=== PATIENT | male | born 1990 | race Caucasian/White ===

== ENCOUNTER 2020-03-04 17:31 | Emergency (ER) | payer BC ==
[~2020-03-04] VITALS: Ht 177.8 cm; Wt 96.6 kg
[2020-03-04] MEDS ORDERED: LIDOCAINE 1% MDV 20ML VIAL As Ordered ONE (18:35)
[2020-03-04] MEDS ORDERED: LIDOCAINE 1% MDV 20ML VIAL SC ONE (18:45)
--- NOTE | 2020-03-04 18:54 | REPVR ---
PROCEDURE INFORMATION: Exam: US Pelvis Limited, Male Exam date and time: 03/04/2020 6:37 PM Age: 30 years old Clinical indication: Mass, lump, or swelling; Other: Lower back just above buttocks; Additional info: Complex pilonidal cyst/abcess TECHNIQUE: Imaging protocol: Real-time pelvic ultrasound with image documentation. COMPARISON: No relevant prior studies available. FINDINGS: Free fluid: Debris is are seen in the fluid collection. Vasculature: There is increased vascular flow in the periphery of the fluid collection. Other findings: Complex collection in the lower midline with tract to skin. It measures approximately 7.2 x 1.7 cmx2.9cm(APXTxCC). IMPRESSION: Abscess in the lower midline back subcutaneous tissues with tract to the skin. Electronically signed by: Jose Alejandro Nix On 03/04/2020 18:53:30 PM
[2020-03-04] MEDS ORDERED: BACT800T5 PO (19:15)
[2020-03-04 19:30] VITALS: BP 133/72
[2020-03-04] MEDS ORDERED: BACTRIM 160MG/800MG DS TAB PO ONE (19:30)
--- NOTE | 2020-03-05 07:33 | ED PDOC ---
Post-Departure Follow-Up dr george and adam faxed formal report of [facility] for fu Jamilah Blackwood MD Mar 05, 2020 07:33
== END 2020-03-04 19:37 | disposition home or self-care (01) ==
LOC: M ED 17:31
DX: L05.01 Pilonidal cyst with abscess (principal)

== ENCOUNTER → 2020-10-10 | Outpatient (REF) | payer BC ==
[~2020-10-10] MED LIST: B-COTAB10 PO; BACT800T5 PO; D31000TA2 PO; MULTCAP PO; VITA500C24 PO
== END ==
LOC: M LAB 21:21
PROVIDERS: ATTEND Physician Assistant Medical
DX: Z11.59 Encounter for screening for other viral diseases (principal)

== ENCOUNTER → 2023-05-14 | Outpatient (CLI) | payer BC ==
[~2023-05-14] MED LIST changes: -D31000TA2 PO; +VITA100093 PO
[2023-05-14 16:24] LABS: EOS % 0.2 % (0.0-3.0); HEMATOCRIT 37.2 % (42.0-52.0); HEMOGLOBIN 12.6 g/dl (13.5-17.5); LYMPH # 0.3 10^3/uL (1.5-5.0); LYMPH % 6.3 % (24.0-44.0); MEAN CORPUSCULAR HEMOGLOBIN 27.2 pg (27.0-33.0); MEAN CORPUSCULAR HGB CONC 33.9 g/dl (32.0-36.5); MEAN CORPUSCULAR VOLUME 80.2 fl (80.0-96.0); MONO # 0.3 10^3/uL (0.0-0.8); MONO % 6.3 % (2.0-8.0); NEUTROPHILS # 3.6 10^3/uL (1.5-8.5); NEUTROPHILS % 87.2 % (36.0-66.0); PLATELET COUNT, AUTOMATED 125 10^3/uL (150-450); RED BLOOD COUNT 4.64 10^6/uL (4.30-6.10); WHITE BLOOD COUNT 4.2 10^3/uL (4.0-10.0)
[2023-05-14 16:48] LABS: ALBUMIN 3.8 G/DL (3.2-5.2); ALKALINE PHOSPHATASE 66 U/L (46-116); ALT/SGPT 31 U/L (7.0-40); AST/SGOT 17 U/L (<34); BILIRUBIN,TOTAL 0.4 MG/DL (0.3-1.2); BLOOD UREA NITROGEN 7 MG/DL (9-23); CALCIUM LEVEL 8.8 MG/DL (8.5-10.1); CARBON DIOXIDE LEVEL 26 MMOL/L (20-31); CHLORIDE LEVEL 106 MMOL/L (98-107); CREATININE FOR GFR 0.64 MG/DL (0.70-1.30); GLOMERULAR FILTRATION RATE > 60.0 (>60); GLUCOSE, FASTING 84 MG/DL (60-100); POTASSIUM SERUM 4.4 MMOL/L (3.5-5.1); SODIUM LEVEL 139 MMOL/L (136-145); TOTAL PROTEIN 7.4 G/DL (5.7-8.2)
== END ==
LOC: M WUC 12:53
PROVIDERS: ATTEND Nurse Practitioner Family
DX: R31.9 Hematuria, unspecified (principal); R63.4 Abnormal weight loss; R53.83 Other fatigue

== ENCOUNTER → 2023-05-19 | Outpatient (CLI) | payer BC | LOC: M RAD 12:30 | PROVIDERS: ATTEND Nurse Practitioner Family | DX: R31.9 Hematuria, unspecified (principal) ==

== ENCOUNTER → 2023-05-27 | Outpatient (REF) | payer BC ==
[2023-05-27 13:56] LABS: APPEARANCE, URINE CLEAR (CLEAR); BACTERIA, URINE AUTO NEGATIVE (NEGATIVE); BILIRUBIN, URINE AUTO NEGATIVE (NEGATIVE); BLOOD, URINE BLOOD NEGATIVE (NEGATIVE); COLOR, URINE YELLOW (YELLOW); GLUCOSE, URINE (UA) AUTO NEGATIVE (NEGATIVE); KETONE, URINE AUTO 1+ mg/dL (NEGATIVE); LEUKOCYTE ESTERASE, URINE AUTO NEGATIVE (NEGATIVE); MUCUS, URINE SMALL (NEGATIVE); NITRITE, URINE AUTO NEGATIVE (NEGATIVE); PROTEIN, URINE AUTO NEGATIVE (NEGATIVE); RBC, URINE AUTO 0 /HPF (0-3); SPECIFIC GRAVITY URINE AUTO 1.012 (1.002-1.035); SQUAMOUS EPITHELIAL CELL UR AU 0 /HPF (0-6); UROBILINOGEN, URINE AUTO 0.2 mg/dL (0.0-2.0); WBC, URINE AUTO 1 /HPF (0-3)
== END ==
LOC: M SMT 13:12
PROVIDERS: ATTEND Physician Assistant
DX: R31.0 Gross hematuria (principal)

== ENCOUNTER → 2024-02-12 | Outpatient (CLI) | payer BC, SELFPAY ==
[2024-02-12 12:45] LABS: HEMATOCRIT 29.9 % (42.0-52.0); HEMOGLOBIN 10.2 g/dl (13.5-17.5); LYMPH # 0.2 10^3/uL (1.5-5.0); LYMPH % 12.6 % (24.0-44.0); MEAN CORPUSCULAR HEMOGLOBIN 27.9 pg (27.0-33.0); MEAN CORPUSCULAR HGB CONC 34.1 g/dl (32.0-36.5); MEAN CORPUSCULAR VOLUME 81.9 fl (80.0-96.0); MONO # 0.2 10^3/uL (0.0-0.8); MONO % 11.8 % (2.0-8.0); PLATELET COUNT, AUTOMATED 162 10^3/uL (150-450); RED BLOOD COUNT 3.65 10^6/uL (4.30-6.10); WHITE BLOOD COUNT 1.3 10^3/uL (4.0-10.0)
[2024-02-12 12:50] LABS: NEUTROPHILS # 0.9 10^3/uL (1.5-8.5)
[2024-02-12 13:15] LABS: LIPASE 49 U/L (12-53)
[2024-02-12 13:18] LABS: ALBUMIN 2.9 G/DL (3.2-5.2); ALKALINE PHOSPHATASE 54 U/L (46-116); ALT/SGPT < 9 U/L (7.0-40); AST/SGOT < 8 U/L (<34); BILIRUBIN,TOTAL 0.7 MG/DL (0.3-1.2); BLOOD UREA NITROGEN 9 MG/DL (9-23); CARBON DIOXIDE LEVEL 29 MMOL/L (20-31); CHLORIDE LEVEL 98 MMOL/L (98-107); CREATININE FOR GFR 0.57 MG/DL (0.70-1.30); GLOMERULAR FILTRATION RATE > 60.0 (>60); GLUCOSE, FASTING 116 MG/DL (60-100); POTASSIUM SERUM 3.3 MMOL/L (3.5-5.1); SODIUM LEVEL 132 MMOL/L (136-145); TOTAL PROTEIN 6.4 G/DL (5.7-8.2)
[2024-02-12 13:20] LABS: FREE T4 0.88 NG/DL (0.89-1.76); THYROID STIMULATING HORMONE 0.374 uIU/ML (0.55-4.78)
[2024-02-12 13:48] LABS: HEMOGLOBIN A1c 4.6 % (4.0-6.0)
== END ==
LOC: M PLALAB 11:08
PROVIDERS: ATTEND Physician Assistant
DX: R63.4 Abnormal weight loss (principal)

== ENCOUNTER → 2024-02-13 | Outpatient (CLI) | payer MEDICAID, SELFPAY | LOC: M PLALAB 10:21 | PROVIDERS: ATTEND Physician Assistant | DX: R63.4 Abnormal weight loss (principal) ==

== ENCOUNTER → 2024-02-16 | Outpatient (REF) | payer BC | LOC: M LAB REF 10:29 | PROVIDERS: ATTEND Physician Assistant | DX: R63.4 Abnormal weight loss (principal) ==

== ENCOUNTER 2024-02-24 10:51 | Emergency (ER) | payer MEDICAID, SELFPAY ==
[~2024-02-24] VITALS: Ht 177.8 cm; Wt 65.9 kg
[2024-02-24 11:51] LABS: HEMATOCRIT 28.1 % (42.0-52.0); HEMOGLOBIN 8.9 g/dl (13.5-17.5); MEAN CORPUSCULAR HEMOGLOBIN 27.1 pg (27.0-33.0); MEAN CORPUSCULAR HGB CONC 31.7 g/dl (32.0-36.5); MEAN CORPUSCULAR VOLUME 85.7 fl (80.0-96.0); PLATELET COUNT, AUTOMATED 200 10^3/uL (150-450); RED BLOOD COUNT 3.28 10^6/uL (4.30-6.10); WHITE BLOOD COUNT 1.1 10^3/uL (4.0-10.0)
[2024-02-24 11:54] LABS: ALBUMIN 2.9 G/DL (3.2-5.2); ALKALINE PHOSPHATASE 53 U/L (46-116); ALT/SGPT 15 U/L (7.0-40); AST/SGOT 15 U/L (<34); BILIRUBIN,DIRECT 0.2 MG/DL (<0.4); BILIRUBIN,TOTAL 0.5 MG/DL (0.3-1.2); BLOOD UREA NITROGEN 10 MG/DL (9-23); CALCIUM LEVEL 8.1 MG/DL (8.5-10.1); CARBON DIOXIDE LEVEL 28 MMOL/L (20-31); CHLORIDE LEVEL 100 MMOL/L (98-107); CREATININE FOR GFR 0.57 MG/DL (0.70-1.30); GLOMERULAR FILTRATION RATE > 60.0 (>60); GLUCOSE, FASTING 78 MG/DL (60-100); POTASSIUM SERUM 4.3 MMOL/L (3.5-5.1); SODIUM LEVEL 132 MMOL/L (136-145); TOTAL PROTEIN 6.5 G/DL (5.7-8.2)
[2024-02-24] MEDS: dexAMETHasone 20MG/5ML VIAL IV ONE (12:11)
[2024-02-24 12:55] LABS: EOSINOPHILS 1 % (0-3); LYMPHOCYTES 20 % (16-44); MONOCYTES 1 % (0-5); NEUTROPHILS 77 % (28-66)
[2024-02-24 12:56] LABS: HYPOCHROMASIA 2+; OVALOCYTES 1+; PLATELET ESTIMATE NORMAL (NORMAL)
[2024-02-24 12:57] LABS: ANISOCYTOSIS 2+
[2024-02-24 14:53] VITALS: BP 115/64; TEMP 99; O2SAT 99
== END 2024-02-24 14:59 | disposition short-term general hospital (02) ==
LOC: M ED 10:51
DX: B20 Human immunodeficiency virus [HIV] disease (principal); D49.6 Neoplasm of unspecified behavior of brain; F17.290 Nicotine dependence, other tobacco product, uncomplicated; F12.10 Cannabis abuse, uncomplicated; F10.10 Alcohol abuse, uncomplicated; Z79.810 Long term (current) use of selective estrogen receptor modulators (SERMs)
CPT/HCPCS: 71045; 80048; 80076; 85025; 87040; 87426; 93041; 96374; 99285; J1100

== ENCOUNTER → 2024-03-25 | Outpatient (CLI) | payer MEDICAID ==
[~2024-03-25] MED LIST changes: +ACET1TAB55 PO; +BIKT1TAB; +DEXA1TA; +LEUC25TA2 PO; +LEVE10003; +ONDA-282; +PANT40TA29; +SULF500T56; +[UNRECOGNIZED DRUG - CODE] PO
[2024-03-25 15:32] LABS: ALBUMIN 3.2 G/DL (3.2-5.2); ALKALINE PHOSPHATASE 63 U/L (46-116); ALT/SGPT 91 U/L (7.0-40); AST/SGOT 10 U/L (<34); BILIRUBIN,TOTAL 0.8 MG/DL (0.3-1.2); BLOOD UREA NITROGEN 20 MG/DL (9-23); CALCIUM LEVEL 8.8 MG/DL (8.5-10.1); CARBON DIOXIDE LEVEL 28 MMOL/L (20-31); CHLORIDE LEVEL 99 MMOL/L (98-107); CREATININE FOR GFR 0.62 MG/DL (0.70-1.30); GLOMERULAR FILTRATION RATE > 60.0 (>60); GLUCOSE, FASTING 107 MG/DL (60-100); POTASSIUM SERUM 4.9 MMOL/L (3.5-5.1); SODIUM LEVEL 132 MMOL/L (136-145); TOTAL PROTEIN 6.5 G/DL (5.7-8.2)
[2024-03-26 10:17] LABS: RPR REACTIVE (NON-REACTIVE)
[2024-03-26 12:09] LABS: % CD4+ LYMPHS 2.9 % (30.8-58.5); ABSOLUTE CD4 HELPER 9 /uL (359-1519); BASOPHILS 0 % (Not Estab.); COMMENTS FOR T-CELL CD4 Note: (.); EOSINOPHILS 0 % (Not Estab.); HCT 30.1 % (37.5-51.0); HGB 10.3 g/dL (13.0-17.7); LYMPHOCYTES 15 % (Not Estab.); LYMPHOCYTES ABSOLUTE 0.3 x10E3/uL (0.7-3.1); MCH 30.5 pg (26.6-33.0); MCHC 34.2 g/dL (31.5-35.7); MCV 89 fL (79-97); MONOCYTES 9 % (Not Estab.); MONOCYTES ABSOLUTE 0.2 x10E3/uL (0.1-0.9); NEUTROPHILS 76 % (Not Estab.); NEUTROPHILS ABSOLUTE 1.6 x10E3/uL (1.4-7.0); PLT 127 x10E3/uL (150-450); RBC 3.38 x10E6/uL (4.14-5.80); RDW 19.3 % (11.6-15.4); WBC 2.1 x10E3/uL (3.4-10.8)
[2024-03-26 14:12] LABS: RPR TITER 1:16 (<1:1)
[2024-03-26 14:32] LABS: HIV-1 RNA PCR QUANT 2 185 copies/mL (NOT DETECTED); HIV-1 RNA PCR QUANT 3 2.27 (NOT DETECTED)
== END ==
LOC: M PLALAB 11:58
PROVIDERS: ATTEND Internal Medicine Infectious Disease
DX: B20 Human immunodeficiency virus [HIV] disease (principal); A53.9 Syphilis, unspecified

== ENCOUNTER 2024-03-26 21:52 | Emergency (ER) | payer MEDICAID ==
[~2024-03-26] VITALS: Ht 177.8 cm; Wt 79.2 kg
[2024-03-26] MEDS ORDERED: ONDANSETRON 4MG 2ML VIAL As Ordered ONE (22:02)
[2024-03-26] MEDS: NS 1,000 ML IV ONE (22:10)
[2024-03-26] MEDS: ONDANSETRON 4MG 2ML VIAL IV ONE (22:10)
[2024-03-26 22:25] LABS: IONIZED CALCIUM 4.7 MG/DL (4.5-5.3)
[2024-03-26] MEDS: ACETAMINOPHEN *IV* 1,000 MG in IV 1 EA IV ONE (22:29)
[2024-03-26 22:33] LABS: HEMATOCRIT 30.4 % (42.0-52.0); HEMOGLOBIN 10.1 g/dl (13.5-17.5); MEAN CORPUSCULAR HEMOGLOBIN 30.5 pg (27.0-33.0); MEAN CORPUSCULAR HGB CONC 33.2 g/dl (32.0-36.5); MEAN CORPUSCULAR VOLUME 91.8 fl (80.0-96.0); PLATELET COUNT, AUTOMATED 102 10^3/uL (150-450); RED BLOOD COUNT 3.31 10^6/uL (4.30-6.10); WHITE BLOOD COUNT 2.3 10^3/uL (4.0-10.0)
[2024-03-26] MEDS: NS IV ONE (22:35)
[2024-03-26 22:51] LABS: ETHYL ALCOHOL (ETHANOL) < 0.003 % (0.000-0.010)
[2024-03-26 23:08] LABS: ALBUMIN 2.9 G/DL (3.2-5.2); ALKALINE PHOSPHATASE 68 U/L (46-116); ALT/SGPT 69 U/L (7.0-40); AST/SGOT 21 U/L (<34); BILIRUBIN,DIRECT 0.2 MG/DL (<0.4); BILIRUBIN,TOTAL 0.6 MG/DL (0.3-1.2); BLOOD UREA NITROGEN 18 MG/DL (9-23); CALCIUM LEVEL 8.4 MG/DL (8.5-10.1); CARBON DIOXIDE LEVEL 19 MMOL/L (20-31); CHLORIDE LEVEL 99 MMOL/L (98-107); CREATININE FOR GFR 0.67 MG/DL (0.70-1.30); GLOMERULAR FILTRATION RATE > 60.0 (>60); GLUCOSE, FASTING 194 MG/DL (60-100); MAGNESIUM LEVEL 1.8 MG/DL (1.8-2.4); PHOSPHORUS LEVEL 4.1 MG/DL (2.5-4.9); POTASSIUM SERUM 4.5 MMOL/L (3.5-5.1); SODIUM LEVEL 131 MMOL/L (136-145)
[2024-03-26] MEDS: levETIRAcetam INJection 1,500 MG in D5W 100 ML IV ONE (23:11)
[2024-03-26 23:23] LABS: ATYPICAL LYMPH 3 % (0-5); BASOPHILS 1 % (0-1); EOSINOPHILS 1 % (0-3); LYMPHOCYTES 19 % (16-44); MONOCYTES 8 % (0-5); NEUTROPHILS 60 % (28-66); PLATELET ESTIMATE DECREASED (NORMAL)
[2024-03-26 23:24] LABS: ANISOCYTOSIS 1+; MICROCYTOSIS 1+; OVALOCYTES 1+; POIKILOCYTOSIS 1+; POLYCHROMASIA 1+
[2024-03-27 00:18] LABS: PROCALCITONIN 0.86 ng/ml
[2024-03-27 01:07] LABS: AMPHETAMINES LEVEL URINE NEGATIVE (NEGATIVE); BARBITURATES URINE NEGATIVE (NEGATIVE); BENZODIAZEPINES URINE NEGATIVE (NEGATIVE); CANNABINOIDS URINE NEGATIVE (NEGATIVE); COCAINE METABOLITE URINE NEGATIVE (NEGATIVE); METHADONE URINE NEGATIVE (NEGATIVE); OPIATES URINE NEGATIVE (NEGATIVE); PHENCYCLIDINE URINE NEGATIVE (NEGATIVE)
[2024-03-27] MEDS: CEFEPIME HCL 2 GM in D5W MINI-BAG PLUS 50 ML IV ONE ×2 (01:11→07:28)
[2024-03-27] MEDS: NS 1,000 ML IV SCH (01:11)
[2024-03-27 01:13] LABS: VENOUS BASE EXCESS -0.8 (-2.0-2.0); VENOUS HCO3 23.4 MMOL/L (23.0-27.0); VENOUS O2 SATURATION 97.8 % (60.0-80.0); VENOUS PARTIAL PRESSURE CO2 36.2 mmHg (38.0-50.0); VENOUS PARTIAL PRESSURE O2 123.8 mmHg (30.0-50.0); VENOUS PH 7.428 UNITS (7.330-7.430); VENOUS STANDARD HCO3 23.9 MMOL/L; VENOUS TOTAL CO2 24.5 MMOL/L (24.0-28.0)
[2024-03-27] MEDS: AZITHROMYCIN INJ 500 MG, VIAL MATE ADAPTER 1 EACH in NS 250 ML IV ONE (02:19)
[2024-03-27] MEDS: KETOROLAC 30 MG/ML 1ML VIAL IV ONE (05:21)
[2024-03-27] MEDS: NS 1,000 ML IV ONE (07:24)
[2024-03-27 07:45] VITALS: BP 106/59; TEMP 98.2; O2SAT 97
== END 2024-03-27 07:50 | disposition short-term general hospital (02) ==
LOC: M ED 21:52 → EDBD 21:52 → M ED 03-27 07:50
DX: A41.9 Sepsis, unspecified organism (principal); J18.9 Pneumonia, unspecified organism; G40.89 Other seizures; B20 Human immunodeficiency virus [HIV] disease; C85.89 Other specified types of non-Hodgkin lymphoma, extranodal and solid organ sites; C71.9 Malignant neoplasm of brain, unspecified; Z79.1 Long term (current) use of non-steroidal anti-inflammatories (NSAID); Z79.810 Long term (current) use of selective estrogen receptor modulators (SERMs); Z79.899 Other long term (current) drug therapy
CPT/HCPCS: 70450; 71045; 72125; 80048; 80076; 80177; 80307; 81001; 82077; 82140; 82330; 82803; 83605; 83735; 84100; 84145; 85025; 87040; 87486; 87581; 87633; 87798; 93041; 94760; 96361; 96365; 96374; 96375; 99285; J0131; J0456; J0692; J1885; J1953; J2405

== ENCOUNTER → 2024-05-04 | Outpatient (CLI) | payer OTHER ==
[2024-05-04 13:59] LABS: HEMATOCRIT 29.3 % (42.0-52.0); HEMOGLOBIN 9.7 g/dl (13.5-17.5); LYMPH # 0.3 10^3/uL (1.5-5.0); LYMPH % 29.7 % (24.0-44.0); MEAN CORPUSCULAR HEMOGLOBIN 32.1 pg (27.0-33.0); MEAN CORPUSCULAR HGB CONC 33.1 g/dl (32.0-36.5); MONO # 0.1 10^3/uL (0.0-0.8); MONO % 6.9 % (2.0-8.0); NEUTROPHILS % 43.6 % (36.0-66.0); PLATELET COUNT, AUTOMATED 136 10^3/uL (150-450); RED BLOOD COUNT 3.02 10^6/uL (4.30-6.10)
[2024-05-04 14:00] LABS: NEUTROPHILS # 0.4 10^3/uL (1.5-8.5)
== END ==
LOC: M PLALAB 10:07
PROVIDERS: ATTEND Internal Medicine Hematology & Oncology
DX: C85.89 Other specified types of non-Hodgkin lymphoma, extranodal and solid organ sites (principal)

== ENCOUNTER 2024-05-07 11:40 | Emergency (ER) | payer OTHER ==
[~2024-05-07] VITALS: Ht 177.8 cm; Wt 71.6 kg
[~2024-05-07 11:40] MED LIST changes: +PYRI25TA PO; -[UNRECOGNIZED DRUG - CODE] PO
[2024-05-07] MEDS ORDERED: QUET1TAB17 PO (12:00)
[2024-05-07] MEDS ORDERED: FAMO20TA PO (12:00)
[2024-05-07] MEDS ORDERED: SODI1TAB12 PO (12:00)
[2024-05-07] MEDS ORDERED: POSA100T PO (12:00)
[2024-05-07] MEDS ORDERED: SENN-186 PO (12:00)
[2024-05-07] MEDS ORDERED: HUMA100I3 SC (12:00)
[2024-05-07] MEDS ORDERED: VALC450T PO (12:00)
[2024-05-07] MEDS ORDERED: DOCU100C16 PO (12:00)
[2024-05-07] MEDS ORDERED: BACT400T PO (12:00)
[2024-05-07] MEDS ORDERED: LORazepam 2 MG/ML 1ML VIAL IV PRN (13:05)
[2024-05-07 13:57] LABS: VENOUS BASE EXCESS 2.7 (-2.0-2.0); VENOUS HCO3 28.3 MMOL/L (23.0-27.0); VENOUS O2 SATURATION 89.3 % (60.0-80.0); VENOUS PARTIAL PRESSURE CO2 48.4 mmHg (38.0-50.0); VENOUS PARTIAL PRESSURE O2 61.3 mmHg (30.0-50.0); VENOUS PH 7.385 UNITS (7.330-7.430); VENOUS STANDARD HCO3 26.8 MMOL/L; VENOUS TOTAL CO2 29.8 MMOL/L (24.0-28.0)
[2024-05-07 14:09] LABS: HEMATOCRIT 27.3 % (42.0-52.0); LYMPH # 0.2 10^3/uL (1.5-5.0); LYMPH % 15.2 % (24.0-44.0); MEAN CORPUSCULAR HEMOGLOBIN 31.4 pg (27.0-33.0); MEAN CORPUSCULAR VOLUME 95.1 fl (80.0-96.0); MONO # 0.1 10^3/uL (0.0-0.8); MONO % 7.6 % (2.0-8.0); NEUTROPHILS % 53.8 % (36.0-66.0); PLATELET COUNT, AUTOMATED 114 10^3/uL (150-450); RED BLOOD COUNT 2.87 10^6/uL (4.30-6.10); WHITE BLOOD COUNT 1.5 10^3/uL (4.0-10.0)
[2024-05-07 14:15] LABS: NEUTROPHILS # 0.8 10^3/uL (1.5-8.5)
[2024-05-07 14:32] LABS: ALBUMIN 2.7 G/DL (3.2-5.2); ALKALINE PHOSPHATASE 76 U/L (46-116); ALT/SGPT 68 U/L (7.0-40); AST/SGOT 14 U/L (<34); BILIRUBIN,DIRECT 0.2 MG/DL (<0.4); BILIRUBIN,TOTAL 0.8 MG/DL (0.3-1.2); BLOOD UREA NITROGEN 22 MG/DL (9-23); CALCIUM LEVEL 8.6 MG/DL (8.5-10.1); CARBON DIOXIDE LEVEL 28 MMOL/L (20-31); CHLORIDE LEVEL 96 MMOL/L (98-107); GLOMERULAR FILTRATION RATE > 60.0 (>60); GLUCOSE, FASTING 191 MG/DL (60-100); MAGNESIUM LEVEL 1.8 MG/DL (1.8-2.4); SODIUM LEVEL 130 MMOL/L (136-145)
[2024-05-07 16:04] VITALS: BP 120/76; TEMP 97.9; O2SAT 96
== END 2024-05-07 16:09 | disposition home or self-care (01) ==
LOC: M ED 11:40
DX: G40.909 Epilepsy, unspecified, not intractable, without status epilepticus (principal); B20 Human immunodeficiency virus [HIV] disease; F17.290 Nicotine dependence, other tobacco product, uncomplicated; F12.10 Cannabis abuse, uncomplicated; Z79.1 Long term (current) use of non-steroidal anti-inflammatories (NSAID); Z79.4 Long term (current) use of insulin; Z79.899 Other long term (current) drug therapy